=== PATIENT | male | born 1975 | race Caucasian/White ===

== ENCOUNTER 2017-03-05 21:16 | Emergency (ER) | payer OTHER ==
[~2017-03-05] VITALS: Ht 182.9 cm; Wt 85.0 kg
[2017-03-05 21:18] VITALS: BP 140/86; PULSE 97; RESP 16; TEMP 98.5; O2SAT 99
[2017-03-05] MEDS ORDERED: HYDR-3583 PO (21:57)
--- NOTE | 2017-03-05 22:16 | PD ---
HPI Chief Complaint: Pain: Acute or Chronic Time Seen by Provider: 21:51 Travel History International Travel<30 days: No Contact w/Intl Traveler<30days: No Traveled to known affect area: No History of Present Illness HPI This is a 42-year-old male who presents to the emergency department with swelling and pain of his left calf that's been going on for 1 day, constant, moderate severity with no associated shortness of breath or chest pain. Patient had surgery on his appendix 4 days ago. He then is traveling back from [place] in a car to [place]. He was concerned he may have a blood clot because he had recent surgery and is also been in the car and not as mobile as he usually is. He says he had a temperature of 99.6 today but denies any new abdominal pain, vomiting, he says he is having normal bowel movements and he is not requiring any pain medicine currently following the surgery. He feels like he is feeling well from the surgery. PFSH Past Medical History Medical History: Denies Significant Hx Past Surgical History Appendectomy: Yes Social History Alcohol Use: Yes (occ) Tobacco Use: No Substance Use: No Allergies-Medications (Allergen,Severity, Reaction): Coded Allergies: No Known Allergies (Verified Allergy, Unknown, 03/05/17) Reported Meds & Prescriptions Reported Meds & Active Scripts Active Reported Hydrocodone-Acetaminophen 10-325 mg Tab 1 Tab PO Q4H PRN Review of Systems Except as stated in HPI: all other systems reviewed are Neg Physical Exam Narrative GENERAL:Well appearing, no acute distress SKIN: Focused skin assessment warm and dry. HEAD: Atraumatic. Normocephalic. EYES: Pupils equal and round. No injection or drainage. ENT: Moist mucous membranes NECK: Trachea midline. CARDIOVASCULAR: Regular rate and rhythm. No murmur appreciated. 2+ left d.p. pulse with normal capillary refill RESPIRATORY: Clear to auscultation. Breath sounds equal bilaterally. GASTROINTESTINAL: Abdomen soft, mildly tender to palpation in the lower abdomen , surgical scars are well healing. MUSCULOSKELETAL: Tender to palpation of the left lower calf NEUROLOGICAL: Awake and alert. No obvious cranial nerve deficits. Moving all extremities. PSYCHIATRIC: Appropriate mood and affect; insight and judgment normal. Data Data Last Documented VS Vital Signs Date Time Temp Pulse Resp B/P (MAP) Pulse Ox O2 Delivery O2 Flow Rate FiO2 03/05/17 21:18 98.5 97 16 140/86 (104) 99 Room Air Orders Orders Us Leg Venous Doppler (03/05/17 ) MDM Medical Decision Making Medical Screen Exam Complete: Yes Emergency Medical Condition: Yes Interpretation(s) Last 24 hours Impressions Lower Extremity Ultrasound 03/05/17 0000 Signed Impressions: Service Date/Time: Sunday, March 05, 2017 21:54 - CONCLUSION: No DVT of the left lower extremity but there is a thrombosed superficial vein at the level of the mid calf. Neil Bird MD Differential Diagnosis Superficial thrombophlebitis, DVT, [place] cyst rupture Narrative Course This is a 42-year-old male who presents to the emergency department with calf pain. He had a recent surgery and also has been traveling in the car for long periods of time. He has a normal neurovascular exam. Ultrasound demonstrates a superficial thrombophlebitis likely of the lesser saphenous vein. Given the clot appears limited, I don't think the patient requires systemic anticoagulation at this time. He should be rechecked by his primary care physician in 7-10 days for reassessment and repeat clinical exam at which time they may consider performing a repeat ultrasound. Diagnosis Primary Impression: Superficial thrombophlebitis Qualified Codes: I80.02 - Phlebitis and thrombophlebitis of superficial vessels of left lower extremity Patient Instructions: General Instructions Additional Instructions: If you develop severe chest pain, shortness of breath, sweating, lightheadedness , dizziness or difficulty breathing return to the emergency department immediately. Followup with your primary care physician in 7-10 days to have your leg reexamined to ensure that your improving. Apply warm wash cloths to your leg 4 times a day. Anti-inflammatories will be deferred given recent surgery. Med/Other Pt SpecificInfo: Prescription(s) given Disposition: 01 DISCHARGE HOME Condition: Stable Shell Valadez MD Mar 05, 2017 22:16
--- NOTE | 2017-03-05 22:43 | RADRPT ---
EXAM DATE/TIME: 03/05/2017 21:54 [facility] COMPARISON: No previous studies available for comparison. INDICATIONS : Left leg pain. MEDICAL HISTORY : Left calf pain. SURGICAL HISTORY : Appendectomy. ENCOUNTER: Initial ACUITY: 2 day PAIN SCORE: 8/10 LOCATION: Left leg. TECHNIQUE: Venous ultrasound of the leg was performed from the inguinal ligament to the proximal calf. Real-vane e, color Doppler and spectral tracing, compression and augmentation techniques were used. FINDINGS: There is normal compressibility of the deep venous system from the inguinal region to the proximal ca lf. No echogenic clot is seen in the lumen of the common femoral, femoral, popliteal, and posterior tibial veins. There is a normal response of the venous system to proximal and distal augmentation an d respiration. In the area of pain of the left calf a thrombosed superficial vessel is demonstrated, probably lesser saphenous. CONCLUSION: No DVT of the left lower extremity but there is a thrombosed superficial vein at the level of the mid calf. Neil Bird MD on March 05, 2017 at 22:41 Board Certified Radiologist. This report was verified electronically.
== END 2017-03-05 23:08 | disposition home or self-care (01) ==
LOC: NEPC 21:16
DX: I80.02 Phlebitis and thrombophlebitis of superficial vessels of left lower extremity (principal)
CPT/HCPCS: 93971; 99284

== ENCOUNTER 2017-03-06 01:24 | Inpatient (IN) | payer OTHER ==
[~2017-03-06] VITALS: Ht 190.5 cm; Wt 93.2 kg
[2017-03-06] VITALS (12 sets, daily range): BP systolic 109–135; BP diastolic 67–82; PULSE 61–98; RESP 16–18; TEMP 97–98.7; O2SAT 96–98
[~2017-03-06 01:24] MED LIST: HYDR-3583 PO
[2017-03-06] MEDS ORDERED: SODIUM CHLOR 0.9% 1000 ML INJ 1,000 ML IV ONE (01:45)
--- NOTE | 2017-03-06 01:55 | PD ---
HPI Chief Complaint: Chest Pain Time Seen by Provider: 01:38 Travel History International Travel<30 days: No Contact w/Intl Traveler<30days: No Traveled to known affect area: No History of Present Illness HPI So 42-year-old man, recent appendectomy, prolonged car ride, leg pain and tenderness with the recent ultrasound earlier today that showed superficial thrombophlebitis, presents to the emergency department. He woke up of left- sided chest pain and shortness of breath. States he was recovering well from his appendectomy several days ago. He gone to [facility] to evacuate from [place]. He is on his way back now. He was seen emergency Department earlier for cramping in the left calf was found to have no DVT versus superficial thrombophlebitis. He otherwise has been feeling generally well. Chest pain is worse with lying flat. Worse with deep breathing. History Past Medical History Medical History: Denies Significant Hx Tetanus Vaccination: Unknown Social History Alcohol Use: Yes (occ) Tobacco Use: No Allergies-Medications (Allergen,Severity, Reaction): Coded Allergies: No Known Allergies (Verified Allergy, Unknown, 03/06/17) Reported Meds & Prescriptions Reported Meds & Active Scripts Active Reported Hydrocodone-Acetaminophen 10-325 mg Tab 1 Tab PO Q4H PRN Review of Systems Except as stated in HPI: all other systems reviewed are Neg Physical Exam Narrative GENERAL: Well-appearing 42 year-old woman, no acute distress. SKIN: Focused skin assessment warm/dry. HEAD: Atraumatic. Normocephalic. EYES: Pupils equal and round. No scleral icterus. No injection or drainage. ENT: No nasal bleeding or discharge. Mucous membranes pink and moist. NECK: Trachea midline. No JVD. CARDIOVASCULAR: Regular rate and rhythm. No murmur appreciated. RESPIRATORY: No accessory muscle use. Clear to auscultation. Breath sounds equal bilaterally. GASTROINTESTINAL: Abdomen flat and soft. Well-healing surgical incisions. MUSCULOSKELETAL: No obvious deformities. No edema. Mild left-sided calf pain. NEUROLOGICAL: Awake and alert. No obvious cranial nerve deficits. Motor grossly within normal limits. Normal speech. Data Data Last Documented VS Vital Signs Date Time Temp Pulse Resp B/P (MAP) Pulse Ox O2 Delivery O2 Flow Rate FiO2 03/06/17 02:41 77 18 119/72 (88) 96 Room Air 03/06/17 01:[address] Pulmonary Angiogram (03/06/17 ) Complete Blood Count With Diff (03/06/17 01:45) Comprehensive Metabolic Panel (03/06/17 01:45) Troponin I (03/06/17 01:45) Electrocardiogram (03/06/17 ) Iv Access Insert/Monitor (03/06/17 01:45) Sodium Chlor 0.9% 1000 Ml Inj (Ns 1000 M (03/06/17 01:45) Iohexol 350 Inj (Omnipaque 350 Inj) (03/06/17 02:20) Act Partial Throm Time (Ptt) (03/06/17 02:49) Prothrombin Time / Inr (Pt) (03/06/17 02:49) Heparin Infusion MAREN.Q1H (03/06/17 02:59) Heparin Inj (Heparin Inj) (03/06/17 09:00) Heparin Inj (Heparin Inj) (03/06/17 09:00) Heparin-D5w 25,000 U/250 Ml (Heparin-D5w (03/06/17 03:00) Act Partial Throm Time (Ptt) (03/06/17 02:59) Prothrombin Time / Inr (Pt) (03/06/17 02:59) Cbc No Diff, Includes Plts (03/06/17 02:59) Cbc No Diff, Includes Plts (03/09/17 06:00) Act Partial Throm Time (Ptt) (03/06/17 09:59) Occult Blood (Hemoccult) Stool (03/06/17 02:59) Admit Order (Ed Use Only) (03/06/17 ) Labs Laboratory Tests Test 03/06/17 01:50 White Blood Count 11.3 TH/MM3 Red Blood Count 4.67 MIL/MM3 Hemoglobin 14.0 GM/DL Hematocrit 41.0 % Mean Corpuscular Volume 87.8 FL Mean Corpuscular Hemoglobin 30.0 PG Mean Corpuscular Hemoglobin Concent 34.2 % Red Cell Distribution Width 12.7 % Platelet Count 181 TH/MM3 Mean Platelet Volume 8.3 FL Neutrophils (%) (Auto) 82.3 % Lymphocytes (%) (Auto) 8.2 % Monocytes (%) (Auto) 7.3 % Eosinophils (%) (Auto) 1.6 % Basophils (%) (Auto) 0.6 % Neutrophils # (Auto) 9.3 TH/MM3 Lymphocytes # (Auto) 0.9 TH/MM3 Monocytes # (Auto) 0.8 TH/MM3 Eosinophils # (Auto) 0.2 TH/MM3 Basophils # (Auto) 0.1 TH/MM3 CBC Comment DIFF FINAL Differential Comment Blood Urea Nitrogen 12 MG/DL Creatinine 1.05 MG/DL Random Glucose 102 MG/DL Total Protein 7.6 GM/DL Albumin 3.8 GM/DL Calcium Level 8.9 MG/DL Alkaline Phosphatase 85 U/L Aspartate Amino Transf (AST/SGOT) 23 U/L Alanine Aminotransferase (ALT/SGPT) 35 U/L Total Bilirubin 1.2 MG/DL Sodium Level 141 MEQ/L Potassium Level 4.1 MEQ/L Chloride Level 105 MEQ/L Carbon Dioxide Level 28.5 MEQ/L Anion Gap 8 MEQ/L Estimat Glomerular Filtration Rate 78 ML/MIN Troponin I LESS THAN 0.02 NG/ML MDM Medical Decision Making Medical Screen Exam Complete: Yes Emergency Medical Condition: Yes Interpretation(s) LABS: CBC remarkable for mild leukocytosis. CMP unremarkable. Troponin negative. CT pulmonary angiogram: Extensive bilateral pulmonary emboli. Differential Diagnosis Pericarditis, PE, pleurisy, anxiety, other Narrative Course Medical decision making Is a 42-year-old male who presents to the emergency department with concern for leg pain and pleuritic chest pain suspicious for PE. Ultrasound was negative for DVT. He looks overall well. Chest is positional could suggest a moment of pericarditis. Possibly anxiety. We'll check labs, CT pulmonary angiogram, reassess. FINAL: Patient positive for extensive bilateral pulmonary emboli. We'll do heparin drip. Admission. Diagnosis Primary Impression: Pulmonary embolism, bilateral Admitting Information Admitting Physician Requests: Admit Dickson Kate MD Mar 06, 2017 01:55
[2017-03-06] MEDS ORDERED: IOHEXOL 350 MG/ML 10 ML VIAL (for RAD DIAG) IVCONTRAST ONE (02:20)
[2017-03-06 02:23] LABS: AUTOMATED NEUTROPHIL # 9.3 TH/MM3 (1.8-7.7); BASOPHIL # 0.1 TH/MM3 (0-0.2); BASOPHIL % 0.6 % (0.0-2.0); EOSINOPHIL # 0.2 TH/MM3 (0-0.4); EOSINOPHIL % 1.6 % (0.0-4.0); HEMO FLAGS DIFF FINAL; LYMPH % 8.2 % (9.0-44.0); LYMPHOCYTE # 0.9 TH/MM3 (1.0-4.8); MEAN CELL VOLUME 87.8 FL (80.0-100.0); MEAN CORPUSCULAR HGB CONC 34.2 % (32.0-36.0); MONO % 7.3 % (0.0-8.0); NEUT % 82.3 % (16.0-70.0); PLATELET COUNT 181 TH/MM3 (150-450); RED BLOOD COUNT 4.67 MIL/MM3 (4.50-5.90); RED CELL DISTRIBUTION WIDTH 12.7 % (11.6-17.2); WHITE BLOOD COUNT 11.3 TH/MM3 (4.0-11.0)
--- NOTE | 2017-03-06 02:30 | RADRPT ---
EXAM DATE/TIME: 03/06/2017 02:18 [facility] COMPARISON: No previous studies available for comparison. INDICATIONS : Left sided chest pain. Recent appendectomy. IV CONTRAST: 80 cc Omnipaque 350 (iohexol) IV RADIATION DOSE: 23.29 CTDIvol (mGy) MEDICAL HISTORY : None SURGICAL HISTORY : Appendectomy. ENCOUNTER: Initial ACUITY: 1 day PAIN SCALE: 6/10 LOCATION: Left chest TECHNIQUE: Volumetric scanning of the chest was performed using a pulmonary embolism protocol MIP images were re constructed. Using automated exposure control and adjustment of the mA and/or kV according to patien t size, radiation dose was kept as low as reasonably achievable to obtain optimal diagnostic quality images. DICOM format image data is available electronically for review and comparison. Follow-up recommendations for detected pulmonary nodules are based at a minimum on nodule size and pa tient risk factors according to Fleischner Society Guidelines. FINDINGS: PULMONARY ARTERIES: Bilateral pulmonary emboli. LUNGS: Bibasilar areas of consolidation probably associated with the aforementioned emboli and resulting vonnie nting/clots.. PLEURAE: There is no pleural thickening or pleural effusion. MEDIASTINUM: There is good visualization of the great vessels of the middle mediastinum. No evidence of mediastin al or hilar adenopathy/mass. However, there is some stranding in the prevascular fatty tissues possib ly representing some venous congestion. MUSCULOSKELETAL: Within normal limits for patient age. MISCELLANEOUS: The visualized upper abdominal organs demonstrate no acute abnormality. CONCLUSION: Extensive bilateral pulmonary emboli with concomitant atelectatic changes in the bases. Spencer Leal MD on March 06, 2017 at 2:25 Board Certified Radiologist. This report was verified electronically.
[2017-03-06 02:31] LABS: ALT (GPT) 35 U/L (12-78); ANION GAP 8 MEQ/L (5-15); AST (GOT) 23 U/L (15-37); BICARBONATE 28.5 MEQ/L (21.0-32.0); BLOOD UREA NITROGEN 12 MG/DL (7-18); CHLORIDE 105 MEQ/L (98-107); GLOMERULAR FILTRATION RATE 78 ML/MIN (>89); POTASSIUM 4.1 MEQ/L (3.5-5.1); SODIUM (NA) 141 MEQ/L (136-145)
[2017-03-06 02:35] LABS: ALKALINE PHOSPHATASE 85 U/L (45-117); TOTAL BILIRUBIN ADULT 1.2 MG/DL (0.2-1.0)
[2017-03-06 03:18] LABS: APTT (PATIENT) 28.5 SEC (24.3-30.1); PROTHROMBIN TIME - PATIENT 11.2 SEC (9.8-11.6)
[2017-03-06] MEDS ORDERED: MAGNESIUM HYDROXIDE SUSP 30 ML CUP PO PRN (03:45)
[2017-03-06] MEDS ORDERED: BISACODYL 10 MG SUPP RECTAL PRN (03:45)
[2017-03-06] MEDS ORDERED: SODIUM CHLORIDE 0.9% FLUSH 10 ML FLUSH IV FLUSH PRN (03:45)
[2017-03-06] MEDS ORDERED: ONDANSETRON HCL 4 MG/2 ML VIAL IVP PRN (03:45)
[2017-03-06] MEDS ORDERED: SENNOSIDES 8.6 MG TAB PO PRN (03:45)
[2017-03-06] MEDS ORDERED: RESP: ALBUTEROL 2.5 MG/IPRATROPIUM 0.5 MG NEB (PRN) NEB (03:45)
[2017-03-06] MEDS ORDERED: HEPARIN SODIUM - IV 10,000 UNITS/10 ML VIAL IV ONE (03:45)
[2017-03-06] MEDS ORDERED: ACETAMINOPHEN 325 MG TAB PO PRN (03:45)
[2017-03-06] MEDS ORDERED: ACETAMINOPHEN/HYDROcodone 325 MG/5 MG TAB PO PRN (03:45)
[2017-03-06] MEDS ORDERED: LACTULOSE SYRUP 20 GM/30 ML CUP PO PRN (03:45)
--- NOTE | 2017-03-06 03:52 | HHI.HP ---
HPI Service [facility] Hospitalists Primary Care Physician No Primary Care Physician Admission Diagnosis Pulmonary Emboli Diagnoses: (1) Pulmonary embolism, bilateral Diagnosis: Principal (2) Chest pain Diagnosis: Principal (3) Leukocytosis Diagnosis: Principal Travel History International Travel<30 Days: No Contact w/Intl Traveler <30 Da: No Traveled to Known Affected Are: No History of Present Illness This is a 42-year-old male with no significant PMH who presented to the ER with complaints of chest pain and SOB starting earlier today. Pt lives in [place], however he evacuated to [place] for [place]. Had presented to the ER in [place] for c/o abdominal pain, found to have appendicitis, s/p appendectomy. Was driving back down to [place] from [place] when he developed lower extremity pain. Seen in [place] ER 03/05/17, s/p LE Doppler w/ superficial thrombophlebitis and was d/c'd home. Returns today w/ complaints of chest pain and SOB. Denies fever, chills or cough. On arrival, BP 125/73, HR 98, O2 sat 97% on RA, Afebrile. W WBC 11.3. Chemistry unremarkable except for GFR 78. Troponin negative. INR 1.0. CTA Pulm w/ extensive bilateral pulmonary emboli with atelectatic changes in the bases. Started on Heparin gtt in ER. Review of Systems Except as stated in HPI: all other systems reviewed are Neg ROS: 14 point review of systems otherwise negative. Past Family Social History Past Medical History PMH: None Past Surgical History PAST SURGICAL HISTORY: Appendectomy Allergies: Coded Allergies: No Known Allergies (Verified Allergy, Unknown, 03/06/17) Family History PAST FAMILY HISTORY: Reviewed. No h/o DM or CAD Social History PAST SOCIAL HISTORY: Negative for occult, tobacco or drugs. Physical Exam Vital Signs Vital Signs Date Time Temp Pulse Resp B/P (MAP) Pulse Ox O2 Delivery O2 Flow Rate FiO2 03/06/17 02:41 77 18 119/72 (88) 96 Room Air 03/06/17 01:27 98.7 98 16 125/73 (90) 97 Room Air Physical Exam PE: GENERAL: Young male in no acute distress. HEENT: PERRLA, EOMI. No scleral icterus or conjunctival pallor. No lid lag or facial droop. CARDIOVASCULAR: Regular rate and rhythm. No obvious murmurs to auscultation. No chest tenderness to palpation. RESPIRATORY: No obvious rhonchi or wheezing. Clear to auscultation. Breath sounds equal bilaterally. GASTROINTESTINAL: Abdomen soft, non-tender, nondistended. BS normal. MUSCULOSKELETAL: Extremities without clubbing, cyanosis, or edema. No obvious deformities. NEUROLOGICAL: Awake, alert and oriented x4. No focal neurologic deficits. Moving both upper and lower extremities spontaneously. Laboratory Laboratory Tests Test 03/06/17 01:50 03/06/17 03:00 White Blood Count 11.3 Red Blood Count 4.67 Hemoglobin 14.0 Hematocrit 41.0 Mean Corpuscular Volume 87.8 Mean Corpuscular Hemoglobin 30.0 Mean Corpuscular Hemoglobin Concent 34.2 Red Cell Distribution Width 12.7 Platelet Count 181 Mean Platelet Volume 8.3 Neutrophils (%) (Auto) 82.3 Lymphocytes (%) (Auto) 8.2 Monocytes (%) (Auto) 7.3 Eosinophils (%) (Auto) 1.6 Basophils (%) (Auto) 0.6 Neutrophils # (Auto) 9.3 Lymphocytes # (Auto) 0.9 Monocytes # (Auto) 0.8 Eosinophils # (Auto) 0.2 Basophils # (Auto) 0.1 CBC Comment DIFF FINAL Differential Comment Blood Urea Nitrogen 12 Creatinine 1.05 Random Glucose 102 Total Protein 7.6 Albumin 3.8 Calcium Level 8.9 Alkaline Phosphatase 85 Aspartate Amino Transf (AST/SGOT) 23 Alanine Aminotransferase (ALT/SGPT) 35 Total Bilirubin 1.2 Sodium Level 141 Potassium Level 4.1 Chloride Level 105 Carbon Dioxide Level 28.5 Anion Gap 8 Estimat Glomerular Filtration Rate 78 Troponin I LESS THAN 0.02 Prothrombin Time 11.2 Prothromb Time International Ratio 1.0 Activated Partial Thromboplast Time 28.5 Result Diagram: 03/06/1714903/06/17149 Caprini VTE Risk Assessment Caprini VTE Risk Assessment: Mod/High Risk (score >= 2) Caprini Risk Assessment Model Point Value = 1 Point Value = 2 Point Value = 3 Point Value = 5 Age 41-60 Minor surgery BMI > 25 kg/m2 Swollen legs Varicose veins or History of unexplained or recurrent spontaneous Oral contraceptives or hormone replacement Sepsis (< 1 month) Serious lung disease, including pneumonia (< 1 month) Abnormal pulmonary function Acute myocardial infarction Congestive heart failure (< 1 month) History of inflammatory bowel disease Medical patient at bed rest Age 61-74 Arthroscopic surgery Major open surgery (> 45 min) Laparoscopic surgery (> 45 min) Malignancy Confined to bed (> 72 hours) Immobilizing plaster cast Central venous access Age >= 75 History of VTE Family history of VTE Factor V Leiden Prothrombin [id number] Lupus anticoagulant Anticardiolipin antibodies Elevated serum homocysteine Heparin-induced thrombocytopenia Other congenital or acquired thrombophilia Stroke (< 1 month) Elective arthroplasty Hip, pelvis, or leg fracture Acute spinal cord injury (< 1 month) Prophylaxis Regimen Total Risk Factor Score Risk Level Prophylaxis Regimen 0-1 Low Early ambulation 2 Moderate Order ONE of the following: *Sequential Compression Device (SCD) *Heparin 5000 units SQ BID 3-4 Higher Order ONE of the following medications: *Heparin 5000 units SQ TID *Enoxaparin/Lovenox 40 mg SQ daily (WT < 150 kg, CrCl > 30 mL/min) *Enoxaparin/Lovenox 30 mg SQ daily (WT < 150 kg, CrCl > 10-29 mL/min) *Enoxaparin/Lovenox 30 mg SQ BID (WT < 150 kg, CrCl > 30 mL/min) AND/OR *Sequential Compression Device (SCD) 5 or more Highest Order ONE of the following medications: *Heparin 5000 units SQ TID (Preferred with Epidurals) *Enoxaparin/Lovenox 40 mg SQ daily (WT < 150 kg, CrCl > 30 mL/min) *Enoxaparin/Lovenox 30 mg SQ daily (WT < 150 kg, CrCl > 10-29 mL/min) *Enoxaparin/Lovenox 30 mg SQ BID (WT < 150 kg, CrCl > 30 mL/min) AND *Sequential Compression Device (SCD) Assessment and Plan Problem List: (1) Pulmonary embolism, bilateral ICD Code: I26.99 - Other pulmonary embolism without acute cor pulmonale Status: Acute (2) Chest pain ICD Code: R07.9 - Chest pain, unspecified (3) Leukocytosis ICD Code: D72.829 - Elevated white blood cell count, unspecified Assessment and Plan A/P: 1. PE: Extensive. Bilateral. s/p evacuation from [place] w/ prolonged travel for [place] in addition to recent Appendectomy, now w/ acute onset of chest pain/SOB, CTA Pulm w/ extensive bilateral PE, images reviewed by me. Started on Heparin gtt in ER, will continue. DuoNeb, Symbicort for bronchospasm. Check Echo to eval for cardiac strain. 2. Chest Pain: Likely secondary to acute, extensive PE. Initial trop negative , EKG w/ no acute ischemia. Check serial cardiac enzymes for trend, Morphine prn. 3. Leukocytosis: WBC 11.3, afebrile, no signs of infection, likely secondary to acute PE. Repeat labs in am. 4. DVT Prophylaxis: On Heparin gtt for acute PE 5. Social work for d/c planning as needed. 6. Case discussed w/ ER physician at length. Physician Certification 2 Midnight Certification Type: Admission for Inpatient Services Order for Inpatient Services The services are ordered in accordance with Medicare regulations or non- Medicare payer requirements, as applicable. In the case of services not specified as inpatient-only, they are appropriately provided as inpatient services in accordance with the 2-midnight benchmark. Estimated LOS (days): 2 days is the estimated time the patient will need to remain in the hospital, assuming treatment plan goals are met and no additional complications. Post-Hospital Plan: Not yet determined Tara Martino MD Mar 06, 2017 03:52
[2017-03-06] MEDS: HEPARIN-D5W 25,000 U/250 ML 250 ML IV PRN ×2 (03:55→20:18)
[2017-03-06] MEDS: RESP: ALBUTEROL 2.5 MG/IPRATROPIUM 0.5 MG NEB (SCH) NEB ×4 (08:25→20:57)
[2017-03-06] MEDS: SODIUM CHLORIDE 0.9% FLUSH 10 ML FLUSH IV FLUSH SCH ×2 (09:00→20:06)
[2017-03-06] MEDS ORDERED: HEPARIN - 10,000 UNITS/ML IV ADDITIVE IV PRN (09:00)
[2017-03-06] MEDS ORDERED: HEPARIN SODIUM - IV 10,000 UNITS/10 ML VIAL IV PRN (09:00)
[2017-03-06] MEDS: DOCUSATE SODIUM 50 MG/SENNA 8.6 MG TAB PO SCH ×2 (09:52→20:06)
[2017-03-06 10:17] LABS: APTT (PATIENT) 51.6 SEC (24.3-30.1)
--- NOTE | 2017-03-06 12:47 | EKG ---
Date Performed: 03/06/2017 Time Performed: 01:56:38 PTAGE: 42 years EKG: Sinus rhythm LEFT AXIS DEVIATION INCOMPLETE RIGHT BUNDLE BRANCH BLOCK T-WAVE ABNORMALITY, CONSIDER ANTERIOR ISCHE FREDI ABNORMAL ECG NO PREVIOUS TRACING DOCTOR: Maxwell Morrow Interpretating Date/Time 03/06/2017 12:46:47
[2017-03-06] MEDS: BUDESONIDE-FORMOTEROL 160/4.5 MCG INHALER INH SCH ×2 (13:13→20:07)
[2017-03-06 17:49] LABS: APTT (PATIENT) 40.2 SEC (24.3-30.1)
[2017-03-06] MEDS: ACETAMINOPHEN/HYDROcodone 325 MG/10 MG TAB PO PRN (20:05)
[2017-03-07] VITALS (10 sets, daily range): BP systolic 103–125; BP diastolic 61–78; PULSE 62–96; RESP 18–19; TEMP 97.1–99.6; O2SAT 93–98
[2017-03-07] MEDS: ACETAMINOPHEN/HYDROcodone 325 MG/10 MG TAB PO PRN ×2 (00:08→04:33)
[2017-03-07] MEDS: RESP: ALBUTEROL 2.5 MG/IPRATROPIUM 0.5 MG NEB (SCH) NEB ×3 (08:00→20:24)
[2017-03-07 08:04] LABS: AUTOMATED NEUTROPHIL # 7.2 TH/MM3 (1.8-7.7); BASOPHIL # 0.1 TH/MM3 (0-0.2); BASOPHIL % 0.7 % (0.0-2.0); EOSINOPHIL # 0.2 TH/MM3 (0-0.4); EOSINOPHIL % 2.1 % (0.0-4.0); HEMATOCRIT 39.1 % (39.0-51.0); HEMO FLAGS DIFF FINAL; LYMPH % 14.3 % (9.0-44.0); LYMPHOCYTE # 1.4 TH/MM3 (1.0-4.8); MEAN CELL VOLUME 90.5 FL (80.0-100.0); MEAN CORPUSCULAR HEMOGLOBIN 30.4 PG (27.0-34.0); MEAN CORPUSCULAR HGB CONC 33.6 % (32.0-36.0); NEUT % 74.9 % (16.0-70.0); PLATELET COUNT 180 TH/MM3 (150-450); RED BLOOD COUNT 4.32 MIL/MM3 (4.50-5.90); RED CELL DISTRIBUTION WIDTH 13.1 % (11.6-17.2); WHITE BLOOD COUNT 9.6 TH/MM3 (4.0-11.0)
[2017-03-07 08:11] LABS: APTT (PATIENT) 40.6 SEC (24.3-30.1)
[2017-03-07 08:26] LABS: ALT (GPT) 34 U/L (12-78); ANION GAP 7 MEQ/L (5-15); AST (GOT) 15 U/L (15-37); BICARBONATE 27.2 MEQ/L (21.0-32.0); BLOOD UREA NITROGEN 13 MG/DL (7-18); CHLORIDE 105 MEQ/L (98-107); GLOMERULAR FILTRATION RATE 90 ML/MIN (>89); POTASSIUM 4.4 MEQ/L (3.5-5.1); SODIUM (NA) 139 MEQ/L (136-145)
[2017-03-07 08:29] LABS: ALKALINE PHOSPHATASE 92 U/L (45-117); TOTAL BILIRUBIN ADULT 1.3 MG/DL (0.2-1.0)
[2017-03-07] MEDS: SODIUM CHLORIDE 0.9% FLUSH 10 ML FLUSH IV FLUSH SCH ×2 (09:00→20:33)
[2017-03-07] MEDS: BUDESONIDE-FORMOTEROL 160/4.5 MCG INHALER INH SCH ×2 (10:08→20:45)
[2017-03-07] MEDS: DOCUSATE SODIUM 50 MG/SENNA 8.6 MG TAB PO SCH ×2 (10:09→20:33)
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
[2017-03-07] MEDS: RIVAROXABAN 15 MG TAB PO SCH ×2 (13:40→20:34)
[2017-03-08 00:55] VITALS: BP 116/66; PULSE 93; RESP 18; TEMP 99.5; O2SAT 96
[2017-03-08 04:00] VITALS: BP 110/62; PULSE 90; RESP 18; TEMP 100.1; O2SAT 95
[2017-03-08 08:00] VITALS: BP 111/67; PULSE 85; RESP 18; TEMP 97.6; O2SAT 94
[2017-03-08 08:32] VITALS: O2SAT 95
[2017-03-08] MEDS: RESP: ALBUTEROL 2.5 MG/IPRATROPIUM 0.5 MG NEB (SCH) NEB ×2 (08:32→12:15)
[2017-03-08 08:35] LABS: HEMATOCRIT 39.6 % (39.0-51.0); MEAN CELL VOLUME 89.4 FL (80.0-100.0); MEAN CORPUSCULAR HEMOGLOBIN 30.1 PG (27.0-34.0); MEAN CORPUSCULAR HGB CONC 33.6 % (32.0-36.0); PLATELET COUNT 217 TH/MM3 (150-450); RED BLOOD COUNT 4.43 MIL/MM3 (4.50-5.90); REVIEW FLAG FINAL
[2017-03-08 08:38] LABS: APTT (PATIENT) 36.1 SEC (24.3-30.1)
[2017-03-08] MEDS: DOCUSATE SODIUM 50 MG/SENNA 8.6 MG TAB PO SCH (09:00)
[2017-03-08] MEDS: SODIUM CHLORIDE 0.9% FLUSH 10 ML FLUSH IV FLUSH SCH (09:00)
[2017-03-08] MEDS: BUDESONIDE-FORMOTEROL 160/4.5 MCG INHALER INH SCH (09:00)
[2017-03-08 09:05] VITALS: PULSE 85
[2017-03-08] MEDS ORDERED: XARE20TA PO (09:07)
[2017-03-08] MEDS ORDERED: XARE15TA PO (09:07)
--- NOTE | 2017-03-08 09:07 | HHI.DCPOC ---
Discharge Care Plan Diagnosis: (1) Pulmonary embolism, bilateral (2) Chest pain (3) Leukocytosis Goals to Promote Your Health * To prevent worsening of your condition and complications * To maintain your health at the optimal level Directions to Meet Your Goals Take your medications as prescribed Follow your dietary instruction Follow activity as directed Keep your appointments as scheduled Take your immunizations and boosters as scheduled If your symptoms worsen call your PCP, if no PCP go to Urgent Care Center or Emergency Room Smoking is Dangerous to Your Health. Avoid second hand smoke Call the 24-hour hour crisis hotline for domestic abuse at Juan Vallejo MD Mar 08, 2017 09:07
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
[2017-03-08] MEDS: RIVAROXABAN 15 MG TAB PO SCH (09:10)
[2017-03-08 12:00] VITALS: BP 119/79; PULSE 100; RESP 18; TEMP 99.1; O2SAT 95
--- NOTE | 2017-03-08 16:08 | ECHRPT ---
Indication: bilateral PE eval function CONCLUSIONS The left ventricular systolic function is normal with an estimated ejection fraction in the range of 55-60%. Mild concentric left ventricular hypertrophy. Normal left ventricular size. Anterior mitral valve leaflet prolapse. Mild mitral valve regurgitation. There is mild tricuspid valve regurgitation. The estimated pulmonary arterial pressure is 31.7 mmHg. Mild RV dilatation Normal RV function BP: / HR: Rhythm: MEASUREMENTS (Male / Female) Normal Values Technical Quality:Good 2D ECHO LV Diastolic Diameter PLAX 4.8 cm 4.2 - 5.9 / 3.9 - 5.3 cm LV Systolic Diameter PLAX 3.7 cm IVS Diastolic Thickness 1.3 cm 0.6 - 1.0 / 0.6 - 0.9 cm LVPW Diastolic Thickness 1.1 cm 0.6 - 1.0 / 0.6 - 0.9 cm LV Relative Wall Thickness 0.5 RV Internal Dim ED PLAX 2.9 cm M-MODE Aortic Root Diameter MM 3.7 cm LA Systolic Diameter MM 4.1 cm LA Ao Ratio MM 1.1 AV Cusp Separation MM 2.4 cm DOPPLER LV E' Lateral Velocity 9.7 cm/s LV E' Septal Velocity 9.2 cm/s TR Peak Velocity 233.0 cm/s TR Peak Gradient 21.7 mmHg Right Atrial Pressure 10.0 mmHg Pulmonary Artery Systolic Pressu 31.7 mmHg Right Ventricular Systolic Press 31.7 mmHg FINDINGS LEFT VENTRICLE The left ventricular systolic function is normal with an estimated ejection fraction in the range of 55-60%. Mild concentric left ventricular hypertrophy. Normal left ventricular size. RIGHT VENTRICLE Normal right ventricular size and systolic function. LEFT ATRIUM The left atrial size is normal. RIGHT ATRIUM The right atrial size is normal. ATRIAL SEPTUM Normal atrial septal thickness without atrial level shunting by limited color doppler interrogation. AORTA The aortic root and proximal ascending aorta are normal in size on limited imaging. MITRAL VALVE Anterior mitral valve leaflet prolapse. Mild mitral valve regurgitation. AORTIC VALVE Trileaflet aortic valve. No aortic valve stenosis or regurgitation. TRICUSPID VALVE Structurally normal tricuspid valve. There is mild tricuspid valve regurgitation. The estimated pulmonary arterial pressure is 31.7 mmHg. PULMONARY VALVE No pulmonary valve regurgitation or stenosis. VESSELS The inferior vena cava is normal in size. PERICARDIUM No pericardial effusion. Erik Mandujano MD (Electronically Signed) Final Date:08 March 2017 16:07
== END 2017-03-08 13:36 | disposition home or self-care (01) | DRG 176 ==
LOC: NEPE 01:24 → NEDA 03:03 → N06B 05:39
PROVIDERS: ADMIT Family Medicine; ATTEND Family Medicine
DX: I26.99 Other pulmonary embolism without acute cor pulmonale (principal)
CPT/HCPCS: 71275; 80053; 84484; 85025; 85027; 85610; 85730; 93005; 93306; 94150; 94640; 94664; 96360; J1644; J7030; Q9967